=== PATIENT | female | born 1955 | race Caucasian/White ===

== ENCOUNTER → 2016-09-02 | Day surgery (SDC) | payer OTHER ==
[~2016-09-02] MED LIST: BUPIVACAINE/EPINEPHRINE 0.5% PF 30 ML VIAL ONE; CLINDAMYCIN PHOS 600 MG/4 ML VIAL ONE; LACTATED RINGER'S 1000 ML INJ 1,000 ML ONE; MIDAZOLAM HCL 2 MG/2 ML VIAL ONE; ONDANSETRON HCL 4 MG/2 ML VIAL IV PUSH ONE; PROPOFOL 200 MG/20 ML AMP IV ONE; VENL150T14 PO; estradiol PO
--- NOTE | 2016-09-03 20:40 | MP ---
cc: CYNDI WEST M.D. DATE OF SURGERY: 09/02/2016 PREOPERATIVE DIAGNOSIS Right knee medial and lateral meniscus tear. POSTOPERATIVE DIAGNOSES Right knee medial and lateral meniscus tear. PROCEDURE Right knee arthroscopic, partial medial and lateral meniscectomy. SURGEON Dr. Cyndi West ANESTHESIA General. REVIEW OF SYSTEMS Less than 10 cc. TOURNIQUET TIME 0. JUSTIFICATION This patient is 61-year-old female who injured the right knee. She has had persistence of the pain in regards to her condition with failure of conservative treatment. Clinical exam as well as MRI confirmed the above-named findings. The patient was counseled as to the risks, benefits and alternatives to the above-named proposed surgical procedure. She did wish to proceed with surgery. PROCEDURE IN DETAIL Written consent was obtained. The patient identified by name, taken to the operating room and placed supine on the operating table. General anesthesia was administered as well as 600 mg of IV clindamycin. She does have a Penicillin allergy. The right thigh carefully placed in a well-padded leg henry. The right lower extremity prepped and draped using isopropyl alcohol, Hibiclens solution and DuraPrep solution. A standard medial and lateral parapatellar arthroscope portal was established. The patellofemoral joint revealed minimal chondromalacia. The medial compartment revealed a complex tear of the posterior horn of the medial meniscus. 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 An arthroscopic biter followed by an arthroscopic shaver was introduced into the medial compartment to perform a partial medial meniscectomy. The meniscal rim was probed and noted to be stable after meniscectomy. The intercondylar notch revealed the anterior and posterior cruciate ligaments to be intact. The lateral compartment revealed a midbody tear of the lateral meniscus extending into the anterior and posterior horns. An arthroscopic biter followed by an arthroscopic shaver was introduced into the lateral compartment to perform a partial lateral meniscectomy. The meniscal rim was probed and noted to be stable after meniscectomy. At the conclusion of the surgical procedure, 30 cc of 0.5% Marcaine with epinephrine was injected into the knee joint. The arthroscopic portals were closed with 3-0 Prolene suture. Sterile dressing was applied. The patient tolerated the procedure well. No intraoperative complications were noted. MD DON Cabrera/BJRaji /3:30 PM /8:05 PM
== END | disposition home or self-care (01) ==
LOC: ESDC 13:28
PROVIDERS: ATTEND Orthopaedic Surgery Sports Medicine
DX: S83.231A Complex tear of medial meniscus, current injury, right knee, initial encounter (principal); S83.281A Other tear of lateral meniscus, current injury, right knee, initial encounter
CPT/HCPCS: 01400; 29880; J2250; J2405; J3010; J7120